=== PATIENT | female | born 1980 | race Asian ===

== ENCOUNTER 2020-02-04 16:17 | Outpatient (CLI) | payer OTHER, SELFPAY | END 2020-02-04 16:18 | disposition home or self-care (01) | LOC: SPT 16:18 | PROVIDERS: Family Provider Internal Medicine; PCP Internal Medicine; Visit Provider Orthopaedic Surgery | DX: Z46.89 Encounter for fitting and adjustment of other specified devices (principal); M76.52 Patellar tendinitis, left knee | CPT/HCPCS: 97760; L1812 ==

== ENCOUNTER → 2022-02-17 15:16 | Outpatient (BNVA) | payer OTHER, SELFPAY | PROVIDERS: Family Provider Internal Medicine; PCP Internal Medicine; Visit Provider Obstetrics & Gynecology | DX: Z12.4 Encounter for screening for malignant neoplasm of cervix (principal) | CPT/HCPCS: 87624 ==

== ENCOUNTER 2022-03-09 14:53 | Outpatient (CLI) | payer OTHER, SELFPAY ==
--- NOTE | 2022-03-09 14:55 | MM_ITS ---
WS: [id number] BILATERAL 3D TOMOSYNTHESIS DIGITAL SCREENING MAMMOGRAPHY WITH CAD CLINICAL INFORMATION: Z12.39 - Encounter for other screening for malignant neop... HISTORY: Screening mammogram. Milky discharge LEFT nipple. COMPARISON: TECHNIQUE: Bilateral CC and MLO views. FINDINGS: The breasts are composed of heterogeneous fibroglandular density tissue, which can limit the detectio n of small underlying mass lesions. No suspicious mass, asymmetry, calcifications, or architectural d istortion. No evidence of malignancy. MM/[place] [id number] IMPRESSION: BI-RADS: 1-Negative FOLLOW UP: 1 Year Follow-up Recommend return to annual screening mammography.
== END 2022-03-09 14:54 | disposition home or self-care (01) ==
LOC: RAD 14:53
PROVIDERS: Family Provider Internal Medicine; PCP Internal Medicine; Visit Provider Obstetrics & Gynecology
DX: Z12.31 Encounter for screening mammogram for malignant neoplasm of breast (principal)
CPT/HCPCS: 77063; 77067

== ENCOUNTER 2023-04-12 14:54 | Outpatient (CLI) | payer OTHER, SELFPAY ==
--- NOTE | 2023-04-12 15:03 | MM_ITS ---
WS: [id number] BILATERAL 3D TOMOSYNTHESIS DIGITAL SCREENING MAMMOGRAM WITH CAD CLINICAL INFORMATION: SCREENING HISTORY: Screening mammogram. No current complaints. COMPARISON: 2021 TECHNIQUE: Bilateral CC and MLO. FINDINGS: The breast are composed of extremely dense tissue, which can limit the detection of small underlying mass lesions. No suspicious focal mass, asymmetry, calcifications, or architectural distortion. No ev idence of malignancy. IMPRESSION: MM/[id number] BI-RADS: 1-Negative FOLLOW UP: 1 Year Follow-up Recommend return to annual screening mammography.
== END 2023-04-12 14:55 | disposition home or self-care (01) ==
LOC: RAD 14:57 → MOBLMAM 15:00
PROVIDERS: PCP Internal Medicine; Visit Provider Internal Medicine
DX: Z12.31 Encounter for screening mammogram for malignant neoplasm of breast (principal)
CPT/HCPCS: 77063; 77067

== ENCOUNTER 2023-04-26 15:56 | Emergency (ER) | payer OTHER, SELFPAY ==
[2023-04-26 15:58] VITALS: BP 121/69; PULSE 75; RESP 18; TEMP 36.9; O2SAT 97; BMI 24.6
--- NOTE | 2023-04-26 16:17 | XRR_ITS ---
PROCEDURE INFORMATION: Exam: XR Chest Exam date and time: 04/26/2023 4:36 PM Age: 43 years old Clinical indication: Pain; On breathing; Additional info: Chest pain TECHNIQUE: Imaging protocol: Radiologic exam of the chest. Views: 1 view. COMPARISON: CR XR shoulder RT min 2V* [id number] 11/30/2022 2:06 PM FINDINGS: Lungs: Unremarkable. No consolidation. Pleural spaces: Unremarkable. No pleural effusion. No pneumothorax. Heart/Mediastinum: Unremarkable. No cardiomegaly. Bones/joints: Unremarkable. XR/XR chest 1V portable [id number] IMPRESSION: No acute findings.
--- NOTE | 2023-04-26 16:21 | ED_ITS ---
Documented by User: Lenny Waller DO 04/26/23 17:27 HPI - URI/Sore Throat General: Chief Complaint: Upper Respiratory Infection Stated Complaint: chest mcintyre, had bronchitus Time Seen by Provider: 04/26/23 16:14 History of Present Illness: Patient states she has had a cold and flulike symptoms for the last month. With cough and congestion. Patient states she is been on an antibiotic every week for the last 4 weeks with a brand-new and starting today. But she has not not gotten any relief from any of them. Patient states that her pain is worse when she takes a big deep breath. The pain is in the central region of her chest. But patient also states that this pain is even more severe when she eats or drinks. Patient does not have any history of acid reflux or peptic ulcer disease. Review of Systems General: Reports: 10 or more systems reviewed and unremarkable except in HPI and below PFSH ED PFSH: Medical History Hypothyroidism Diagnosed in 2018 and is on medication managed by primary care provider Dr. Kirby Mood changes Diagnosed in 2001 and has been on medication since then. No pertinent past medical history Denies diabetes, asthma, hypertension, seizures, DVT/PE PCP: Dr. Kirby Surgical History S/P section X2 2007, 2012 S/P left knee surgery X 3 02/2018, performed for torn tendon S/P tubal ligation Laparoscopic procedure in 2013 Family History Family/Other Breast cancer maternal cousin, diagnosed in her 40s Grandmother Ovarian cancer maternal grandmother, age at diagnosis unknown Denies family history of Colon cancer Diabetes Heart disease Hyperlipidemia Hypertension Uterine cancer Thyroid condition Stroke Social History Smoking and tobacco status: never smoked Physical Exam Const: COMMON NORMALS: no acute distress, average body habitus, patient oriented x3, no limitations, healthy appearing, alert and well nourished HENMT: COMMON NORMALS: normocephalic, atraumatic, hearing grossly normal bilaterally, external ears normal, Normal external nose present and moist oral mucous membranes HEAD & SCALP: normocephalic and atraumatic NOSE: Normal external nose present EXTERNAL EAR: Yes external ears normal Eye: COMMON NORMALS: Equal, round and reactive pupils present, EOMs intact bi laterally, conjunctivae normal and no scleral icterus CONJUNCTIVA: Yes co njunctivae normal PUPIL: Yes Equal, round and reactive pupils present Neck/C-Spine: COMMON NORMALS: full ROM, no lymphadenopathy, supple, no meningeal signs, no JVD and Thyroid normal THYROID: Thyroid normal Chest: COMMONS NORMALS: normal inspection of the chest; negative for normal palpation of entire chest wall (Tender to palpation m idsternal to lower sternal region.) Resp: COMMON NORMALS: normal respiratory effort, No retractions, No use of accessory muscles and clear to auscultation bilaterally AUSCULTATION: clear to auscultation bilaterally Cardio: COMMON NORMALS: no JVD, regular rate, regular rhythm, S1 normal heart sound present, S2 normal heart sound present, No gallops present (Cardio), No clicks present (Cardio), No murmurs present (Cardio) and No rub (Cardio) RATE: regular rate RHYTHM: regular rhythm HEART SOUNDS: S1 normal heart sound present and S2 normal heart sound present GI: COMMON NORMALS: Normal to inspection, nondistended, normoactive bowel sounds present, Soft to palpation, non-tender, No hepatosplenomegaly present, no masses and no bruits PALPATION: Yes Soft to palpation and Yes No hepatosplenomegaly present : COMMON NORMALS: Yes no CVA tenderness BLADDER/KIDNEY EXAM: Yes no CVA tenderness Back/Pelvis: COMMON NORMALS: no CVA tenderness Neuro: COMMON NORMALS: patient oriented x3 SENSORIUM/ORIENTATION: Yes alert MENINGEAL SIGNS: Yes no meningeal signs Course Vital Signs: Vital signs: Vital Signs Temperature 98.4 F 04/26/23 15:58 Pulse Rate 70 04/26/23 17:55 Respiratory Rate 18 04/26/23 15:58 Blood Pressure 120/66 04/26/23 17:55 Pulse Oximetry 100 04/26/23 17:55 Oxygen Delivery Me thod Room Air 04/26/23 17:55 MDM - URI/Sore Throat Differential Diagnosis Unlikely upper respiratory infection, croup, otitis media, sinusitis, viral infection, bronchitis, influenza or pharyngitis Medical Records I reviewed the patient's medical records. Lab Data I reviewed the patient's lab results. 04/26/23 16:30 04/26/23 16:30 Radiology Impressions Chest X-Ray 04/26/23 16:17 IMPRESSION: No acute findings. Laboratory Results WBC 12.94 10^3/uL (3.29-11.43) H 04/26/23 16:30 RBC 4.19 10^6/uL (3.85-5.65) 04/26/23 16:30 Hgb 11.70 g/dL (11.27-16.99) 04/26/23 16:30 Hct 35.4 % (36-47) L 04/26/23 16:30 MCV 84.5 fl (85-98) L 04/26/23 16: MCH 27.9 pg (27-33) 04/26/23 16: MCHC 33.1 g/dL (30-55) 04/26/23 16: RDW 14.2 % (12.1-15.1) 04/26/23 16:30 Plt Count 222 10^3/cmm (157-399) 04/26/23 16:30 MPV 10.8 fL (7.4-10.4) H 04/26/23 16:30 Neut % (Auto) 71.3 % 04/26/23 16:30 Lymph % (Auto) 21.4 % 04/26/23 16:30 [place] % (Auto) 5.2 % 04/26/23 16:30 Eos % (Auto) 1.5 % 04/26/23 16:30 Baso % (Auto) 0.2 % 04/26/23 16: Neut # (Auto) 9.23 10^3/uL (1.8-7.7) H 04/26/23 16:30 Lymph # (Auto) 2.8 10^3/uL (0.8-4.8) 04/26/23 16:30 [place] # (Auto) 0.7 10^3/uL (0.2-0.9) 04/26/23 16:30 Eos # (Auto) 0.2 10^3/uL (0.0-0.8) 04/26/23 16:30 Baso # (Auto) 0.0 10^3/uL (0.0-0.1) 04/26/23 16:30 Nucleated RBC % (auto) 0 % 04/26/23 16:30 Nucleated RBCs # 0.0 /100WBC 04/26/23 16:30 Sodium 136 mmol/L (136-145) 04/26/23 16:30 Potassium 3.7 mmol/L (3.5-5.1) 04/26/23 16:30 Chloride 105 mmol/L (98-107) 04/26/23 16:30 Carbon Dioxide 23 mmol/L (22-29) 04/26/23 16:30 Anion Gap 11.7 (5-19) 04/26/23 16:30 BUN 11 mg/dL (6-20) 04/26/23 16:30 Creatinine 0.8 mg/dL (0.5-0.9) 04/26/23 16:30 GFR Calculation 78.3 mL/min (90-130) L 04/26/23 16:30 Glucose 138 mg/dL (65-115) H 04/26/23 16:30 Calculated Osmolality 284 mOsm/kg (285-295) L 04/26/23 16:30 Calcium 8.7 mg/dL (8.5-10.5) 04/26/23 16:30 Total Bilirubin 0.5 mg/dL (0.15-1.2) 04/26/23 16:30 AST 11 U/L (0-32) 04/26/23 16:30 ALT 8 U/L (0-33) 04/26/23 16:30 Alkaline Phosphatase 41 U/L (35-105) 04/26/23 16:30 Troponin T Baseline 6 ng/L (0-10) 04/26/23 16:30 Troponin T 120 Minute 6.00 ng/L (0-10) 04/26/23 18:38 Delta Troponin T 0 ABS# (0-10) 04/26/23 18:38 Total Protein 6.8 g/dL (6.6-8.7) 04/26/23 16:30 Albumin 4.3 g/dL (3.5-5.2) 04/26/23 16:30 Globulin 2.5 g/dL (1.3-4.6) 04/26/23 16:30 Nasal Influ A H1 2008 PCR Not detected (NOT DETECT) 04/26/23 17:23 Adenovirus (PCR) Not detected (NOT DETECT) 04/26/23 17:23 C. pneumoniae DNA (PCR) Not detected (NOT DETECT) 04/26/23 17:23 Coronavirus 229E (PCR) Not detected (NOT DETECT) 04/26/23 17:23 Human Metapneumovir PCR Not detected (NOT DETECT) 04/26/23 17:23 Influenza A (H1) PCR Not detected (NOT DETECT) 04/26/23 17:23 Influenza A (H3) PCR Not detected (NOT DETECT) 04/26/23 17:23 Influenza Type A (PCR) Not detected (NOT DETECT) 04/26/23 17:23 Influenza Type B (PCR) Not detected (NOT DETECT) 04/26/23 17:23 M. pneumoniae (PCR) Not detected (NOT DETECT) 04/26/23 17:23 Parainfluenza 1 (PCR) Not detected (NOT DETECT) 04/26/23 17:23 Parainfluenza 2 (PCR) Not detected (NOT DETECT) 04/26/23 17:23 Parainfluenza 3 (PCR) Not detected (NOT DETECT) 04/26/23 17:23 Parainfluenza 4 (PCR) Not detected (NOT DETECT) 04/26/23 17:23 RSV Type A (PCR) Not detected (NOT DETECT) 04/26/23 17:23 RSV Type B (PCR) Not detected (NOT DETECT) 04/26/23 17:23 Entero/Rhino (PCR) Not detected (NOT DETECT) 04/26/23 17:23 SARS-CoV-2 (PCR) Not detected (NOT DETECT) 04/26/23 17:23 EKG Data EKG 1: I personally reviewed and interpreted this EKG as follows: EKG interpretation date: 04/26/23 EKG interpretation time: 16:26 Prior EKG tracings: not available for review Interpretation: EKG shows ventricular rate 72 bpm, IA interval 121, QRS duration 86, QTc 399, sinus rhythm, no ST-T wave changes Discharge Plan Discharge Patient Disposition: Home Clinical Impression: Atypical chest pain Condition: Stable Prescriptions: No Action norethindrone-e.estradiol-iron [Junel FE .5/ (28)] 1.5 mg-30 mcg (21)/75 mg (7) tablet 1 tab PO DAILY Qty: 84 3RF sertraline [Zoloft] 25 mg tablet 25 mg PO DAILY levothyroxine 50 mcg capsule 50 mcg PO DAILY cetirizine [Zyrtec] 10 mg tablet 10 mg PO DAILY Discharge Orders: Discharge ED (Routine); Ordered 04/26/23 Ordered By: Yosef Lehman Referrals: Thom Kirby DO [Primary Care Provider] - 1-3 days Discharge Diet: Advance as tolerated Discharge Activity: Resume usual activity Patient Instructions: Chest Pain (ED) Coding Level of Care Code ED Retail Sales Merchandiser Development for [employer] Documented by User: Yosef Lehman MD 04/26/23 19:34 HPI - URI/Sore Throat General: Chief Complaint: Upper Respiratory Infection Stated Complaint: chest mcintyre, had bronchitus Time Seen by Provider: 04/26/23 16:14 PFSH ED PFSH: Medical History Hypothyroidism Diagnosed in 2018 and is on medication managed by primary care provider Dr. Kirby Mood changes Diagnosed in 2001 and has been on medication since then. No pertinent past medical history Denies diabetes, asthma, hypertension, seizures, DVT/PE PCP: Dr. Kirby Surgical History S/P section X2 2007, 2012 S/P left knee surgery X 3 02/2018, performed for torn tendon S/P tubal ligation Laparoscopic procedure in 2012 Family History Family/Other Breast cancer maternal cousin, diagnosed in her 40s Grandmother Ovarian cancer maternal grandmother, age at diagnosis unknown Denies family history of Colon cancer Diabetes Heart disease Hyperlipidemia Hypertension Uterine cancer Thyroid condition Stroke Social History Smoking and tobacco status: never smoked Course Vital Signs: Vital signs: Vital Signs Temperature 98.4 F 04/26/23 15:58 Pulse Rate 70 04/26/23 17:55 Respiratory Rate 18 04/26/23 15:58 Blood Pressure 120/66 04/26/23 17:55 Pulse Oximetry 100 04/26/23 17:55 Oxygen Delivery Me thod Room Air 04/26/23 17:55 MDM - URI/Sore Throat Medical Decision Making Patient presents for chest pains atypical in nature x-ray EKG here is normal her initial repeat troponins are normal as well she has no signs of dissection or pulm embolism she has no signs of acute coronary syndrome her pain is since resolved here she is stable for discharge she is follow-up with PCP and return if worsening. Lab Data 04/26/23 16:30 04/26/23 16:30 Radiology Impressions Chest X-Ray 04/26/23 16:17 IMPRESSION: No acute findings. Laboratory Results WBC 12.94 10^3/uL (3.29-11.43) H 04/26/23 16:30 RBC 4.19 10^6/uL (3.85-5.65) 04/26/23 16:30 Hgb 11.70 g/dL (11.27-16.99) 04/26/23 16:30 Hct 35.4 % (36-47) L 04/26/23 16:30 MCV 84.5 fl (85-98) L 04/26/23 16:30 MCH 27.9 pg (27-33) 04/26/23 16:30 MCHC 33.1 g/dL (30-55) 04/26/23 16:30 RDW 14.2 % (12.1-15.1) 04/26/23 16:30 Plt Count 222 10^3/cmm (157-399) 04/26/23 16:30 MPV 10.8 fL (7.4-10.4) H 04/26/23 16:30 Neut % (Auto) 71.3 % 04/26/23 16:30 Lymph % (Auto) 21.4 % 04/26/23 16:30 [place] % (Auto) 5.2 % 04/26/23 16:30 Eos % (Auto) 1.5 % 04/26/23 16:30 Baso % (Auto) 0.2 % 04/26/23 16:30 Neut # (Auto) 9.23 10^3/uL (1.8-7.7) H 04/26/23 16:30 Lymph # (Auto) 2.8 10^3/uL (0.8-4.8) 04/26/23 16:30 [place] # (Auto) 0.7 10^3/uL (0.2-0.9) 04/26/23 16:30 Eos # (Auto) 0.2 10^3/uL (0.0-0.8) 04/26/23 16:30 Baso # (Auto) 0.0 10^3/uL (0.0-0.1) 04/26/23 16:30 Nucleated RBC % (auto) 0 % 04/26/23 16:30 Nucleated RBCs # 0.0 /100WBC 04/26/23 16:30 Sodium 136 mmol/L (136-145) 04/26/23 16:30 Potassium 3.7 mmol/L (3.5-5.1) 04/26/23 16:30 Chloride 105 mmol/L (98-107) 04/26/23 16:30 Carbon Dioxide 23 mmol/L (22-29) 04/26/23 16:30 Anion Gap 11.7 (5-19) 04/26/23 16:30 BUN 11 mg/dL (6-20) 04/26/23 16:30 Creatinine 0.8 mg/dL (0.5-0.9) 04/26/23 16:30 GFR Calculation 78.3 mL/min (90-130) L 04/26/23 16:30 Glucose 138 mg/dL (65-115) H 04/26/23 16:30 Calculated Osmolality 284 mOsm/kg (285-295) L 04/26/23 16:30 Calcium 8.7 mg/dL (8.5-10.5) 04/26/23 16:30 Total Bilirubin 0.5 mg/dL (0.15-1.2) 04/26/23 16:30 AST 11 U/L (0-32) 04/26/23 16:30 ALT 8 U/L (0-33) 04/26/23 16:30 Alkaline Phosphatase 41 U/L (35-105) 04/26/23 16:30 Troponin T Baseline 6 ng/L (0-10) 04/26/23 16:30 Troponin T 120 Minute 6.00 ng/L (0-10) 04/26/23 18:38 Delta Troponin T 0 ABS# (0-10) 04/26/23 18:38 Total Protein 6.8 g/dL (6.6-8.7) 04/26/23 16:30 Albumin 4.3 g/dL (3.5-5.2) 04/26/23 16:30 Globulin 2.5 g/dL (1.3-4.6) 04/26/23 16:30 Nasal Influ A H1 2009 PCR Not detected (NOT DETECT) 04/26/23 17:23 Adenovirus (PCR) Not detected (NOT DETECT) 04/26/23 17:23 C. pneumoniae DNA (PCR) Not detected (NOT DETECT) 04/26/23 17:23 Coronavirus 229E (PCR) Not detected (NOT DETECT) 04/26/23 17:23 Human Metapneumovir PCR Not detected (NOT DETECT) 04/26/23 17:23 Influenza A (H1) PCR Not detected (NOT DETECT) 04/26/23 17:23 Influenza A (H3) PCR Not detected (NOT DETECT) 04/26/23 17:23 Influenza Type A (PCR) Not detected (NOT DETECT) 04/26/23 17:23 Influenza Type B (PCR) Not detected (NOT DETECT) 04/26/23 17:23 M. pneumoniae (PCR) Not detected (NOT DETECT) 04/26/23 17:23 Parainfluenza 1 (PCR) Not detected (NOT DETECT) 04/26/23 17:23 Parainfluenza 2 (PCR) Not detected (NOT DETECT) 04/26/23 17:23 Parainfluenza 3 (PCR) Not detected (NOT DETECT) 04/26/23 17:23 Parainfluenza 4 (PCR) Not detected (NOT DETECT) 04/26/23 17:23 RSV Type A (PCR) Not detected (NOT DETECT) 04/26/23 17:23 RSV Type B (PCR) Not detected (NOT DETECT) 04/26/23 17:23 Entero/Rhino (PCR) Not detected (NOT DETECT) 04/26/23 17:23 SARS-CoV-2 (PCR) Not detected (NOT DETECT) 04/26/23 17:23 Discharge Plan Discharge Patient Disposition: Home Clinical Impression: Atypical chest pain Condition: Stable Prescriptions: No Action norethindrone-e.estradiol-iron [Junel FE 1.5/30 (28)] 1.5 mg-30 mcg (21)/75 mg (7) tablet 1 tab PO DAILY Qty: 84 3RF sertraline [Zoloft] 25 mg tablet 25 mg PO DAILY levothyroxine 50 mcg capsule 50 mcg PO DAILY cetirizine [Zyrtec] 10 mg tablet 10 mg PO DAILY Discharge Orders: Discharge ED (Routine); Ordered 04/26/23 Ordered By: Yosef Lehman Referrals: Thom Kirby DO [Primary Care Provider] - 1-3 days Discharge Diet: Advance as tolerated Discharge Activity: Resume usual activity Patient Instructions: Chest Pain (ED) Coding Level of Care Code 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
--- NOTE | 2023-04-26 16:26 | ECG_ITS ---
[facility] Test Date: 2023-04-26 Pat Name: Escobar Garcia Department: Room: Gender: Female Operations Specialists: : 1980 Requested By: Lenny Waller Order Number: [id number] Libra MD: Maliha Cee M.D. Measurements Intervals [place] Rate: 72 P: 64 NH: 121 QRS: 65 QRSD: 86 T: 40 QT: 374 QTc: 412 Interpretive Statements SINUS RHYTHM No previous ECG available for comparison Electronically Signed On 04-26-2023 23:58:17 CDT by Maliha Cee M.D. [id number]
[2023-04-26] MEDS: aluminum-mag hydrox-simethicon 30 ML, sucralfate oral liq 1 GM PO (16:28)
[2023-04-26 16:49] LABS: Basophils % 0.2 %; Eosinophils # 0.2 10^3/uL (0.0-0.8); Eosinophils % 1.5 %; Hematocrit 35.4 % (36-47); Lymphocytes # 2.8 10^3/uL (0.8-4.8); Lymphocytes % 21.4 %; Mean Corpuscular HGB Conc 33.1 g/dL (30-55); Mean Corpuscular Hemoglobin 27.9 pg (27-33); Mean Corpuscular Volume 84.5 fl (85-98); Mean Platelet Volume 10.8 fL (7.4-10.4); Monocytes # 0.7 10^3/uL (0.2-0.9); Monocytes % 5.2 %; Neutrophils # 9.23 10^3/uL (1.8-7.7); Neutrophils % 71.3 %; Nucleated Red Blood Cells % 0 %; Platelet Count 222 10^3/cmm (157-399); Red Blood Count 4.19 10^6/uL (3.85-5.65); Red Cell Distribution Width 14.2 % (12.1-15.1); White Blood Count 12.94 10^3/uL (3.29-11.43)
[2023-04-26 16:55] LABS: Troponin(5th) Baseline 6 ng/L (0-10)
[2023-04-26 16:56] LABS: Alanine Aminotransferase 8 U/L (0-33); Albumin Level 4.3 g/dL (3.5-5.2); Alkaline Phosphatase 41 U/L (35-105); Aspartate Amino Transferase 11 U/L (0-32); Blood Urea Nitrogen 11 mg/dL (6-20); Calcium 8.7 mg/dL (8.5-10.5); Carbon Dioxide 23 mmol/L (22-29); Chloride 105 mmol/L (98-107); Globulin 2.5 g/dL (1.3-4.6); Glomerular Filtration Rate 78.3 mL/min (90-130); Glucose 138 mg/dL (65-115); Osmolality Calculated 284 mOsm/kg (285-295); Sodium 136 mmol/L (136-145); Total Bilirubin 0.5 mg/dL (0.15-1.2); Total Protein 6.8 g/dL (6.6-8.7)
[2023-04-26 16:59] VITALS: BP 122/69; PULSE 68; O2SAT 99
[2023-04-26 16:59] LABS: Anion Gap 11.7 (5-19); Potassium 3.7 mmol/L (3.5-5.1)
[2023-04-26] MEDS: ketorolac 30 mg/mL INJ IM (17:18)
[2023-04-26 17:55] VITALS: BP 120/66; PULSE 70; O2SAT 100
--- NOTE | 2023-04-26 18:53 | ECG_ITS ---
Test Date: 2023-04-26 Pat Name: Escobar Garcia Department: Room: Gender: Female Project Assistant: : 1980 Requested By: Lenny Waller Order Number: [id number] Libra MD: Maliha Cee M.D. Measurements Intervals [place] Rate: 66 P: 67 [place]: 134 QRS: 67 QRSD: 89 T: 53 QT: 384 QTc: 403 Interpretive Statements SINUS RHYTHM POSSIBLE RIGHT VENTRICULAR CONDUCTION DELAY [RSR (QR) IN V1/V2] Compared to ECG 04/26/2023 16:26:39 No significant changes Electronically Signed On 04-27-2023 0:05:11 CDT by Maliha Cee M.D. [id number]
[2023-04-26 19:16] LABS: Troponin 5 2HR Delta 0 ABS# (0-10)
[2023-04-26 19:18] LABS: Adenovirus Not Detected (NOT DETECT); Chlamydia Pneumoniae Not Detected (NOT DETECT); Coronavirus 229E,HKU1,NL63,OC4 Not Detected (NOT DETECT); Human Metapneumovirus Not Detected (NOT DETECT); Human Rhinovirus/Enterovirus Not Detected (NOT DETECT); Influenza A Not Detected (NOT DETECT); Influenza A H1 Not Detected (NOT DETECT); Influenza A H1-2009 Not Detected (NOT DETECT); Influenza A H3 Not Detected (NOT DETECT); Influenza B Not Detected (NOT DETECT); Mycoplasma Pneumoniae Not Detected (NOT DETECT); Parainfluenza Virus Type 1 Not Detected (NOT DETECT); Parainfluenza Virus Type 2 Not Detected (NOT DETECT); Parainfluenza Virus Type 3 Not Detected (NOT DETECT); Parainfluenza Virus Type 4 Not Detected (NOT DETECT); Respiratory Syncytial Virus A Not Detected (NOT DETECT); Respiratory Syncytial Virus B Not Detected (NOT DETECT); SARS-COV-2 Not Detected (NOT DETECT)
[2023-04-26 19:39] VITALS: BP 120/66; PULSE 70; RESP 18; TEMP 36.9; O2SAT 100
== END 2023-04-26 19:40 | disposition home or self-care (01) ==
PROVIDERS: Emergency Medicine; Emergency Provider Emergency Medicine; PCP Internal Medicine
DX: R07.89 Other chest pain (principal)
CPT/HCPCS: 36415; 71045; 80053; 84484; 85025; 87486; 87581; 87633; 93005; 96372; 99285; J1885

== ENCOUNTER 2024-04-18 14:51 | Outpatient (CLI) | payer OTHER, SELFPAY ==
--- NOTE | 2024-04-18 14:56 | MM_ITS ---
WS: [id number] BILATERAL 3D TOMOSYNTHESIS DIGITAL SCREENING MAMMOGRAPHY WITH CAD CLINICAL INFORMATION: SCREENING HISTORY: Screening mammogram. No current complaints. COMPARISON: 2022 TECHNIQUE: Bilateral CC and MLO views. FINDINGS: The breasts are composed of heterogeneous fibroglandular density tissue, which can limit the detectio n of small underlying mass lesions. No suspicious mass, asymmetry, calcifications, or architectural d istortion. No evidence of malignancy. Vascular calcifications. MM/[place] [id number] IMPRESSION: BI-RADS: 2-Benign FOLLOW UP: 1 Year Follow-up Recommend return to annual screening mammography.
== END 2024-04-18 14:52 | disposition home or self-care (01) ==
LOC: RAD 14:52
PROVIDERS: PCP Internal Medicine; Visit Provider Internal Medicine
DX: Z12.31 Encounter for screening mammogram for malignant neoplasm of breast (principal); R92.333 Mammographic heterogeneous density, bilateral breasts; R92.1 Mammographic calcification found on diagnostic imaging of breast
CPT/HCPCS: 77063; 77067

== ENCOUNTER 2024-10-04 09:51 | Outpatient (CLI) | payer OTHER, SELFPAY ==
--- NOTE | 2024-10-04 09:45 | USR_ITS ---
PROCEDURE INFORMATION: Exam: US Non-Invasive Physiologic Bilateral Lower Extremities Arteries, Complete Exam date and time: 10/04/2024 10:50 AM Age: 44 years old Clinical indication: Pain; Leg, lower; Bilateral; Additional info: Blood flow TECHNIQUE: Imaging protocol: Complete bilateral noninvasive physiologic studies of lower extremity arteries, 3 or more levels or single level study with provocative functional maneuvers. Waveforms were obtained and evaluated. Images were documented and archived. Exam is complete. Total images: 2 COMPARISON: US ROR venous duplex [facility] 05/25/2018 1:59 PM FINDINGS: Right Ankle-Brachial Index: 123/127 = 1.05 Right Digit: 86/117 = 0.74 Left Ankle-Brachial Index: 124/116 = 1.06 Left Digit: 104/116 = 0.89 US/CV segpressure [facility] [id number] IMPRESSION: Normal ankle-brachial indices.
== END 2024-10-04 09:52 | disposition home or self-care (01) ==
LOC: RAD 09:54
PROVIDERS: PCP Internal Medicine; Visit Provider Podiatrist Foot & Ankle Surgery
DX: I73.9 Peripheral vascular disease, unspecified (principal)
CPT/HCPCS: 93923

== ENCOUNTER 2025-04-23 14:56 | Outpatient (CLI) | payer OTHER, SELFPAY ==
--- NOTE | 2025-04-23 15:00 | MM_ITS ---
WS: [id number] BILATERAL 3D TOMOSYNTHESIS DIGITAL SCREENING MAMMOGRAPHY WITH CAD CLINICAL INFORMATION: SCREENING MAMMOGRAM HISTORY: Screening mammogram. No current complaints. COMPARISON: 2023 TECHNIQUE: Bilateral CC and MLO views. FINDINGS: The breasts are composed of heterogeneous fibroglandular density tissue, which can limit the detection of small underlying mass lesions. No suspicious mass, asymmetry, calcifications, or architectural distortion. No evidence of malignancy. MM/MM scr tomosynthesis [id number] IMPRESSION: DENSITY: The breasts are heterogeneously dense, which may obscure small masses. BI-RADS: 1 - Negative FOLLOW UP: 1 Year Follow-up Recommend return to annual screening mammography.
== END 2025-04-23 14:57 | disposition home or self-care (01) ==
LOC: RAD 14:57
PROVIDERS: Visit Provider Family Medicine
DX: Z12.31 Encounter for screening mammogram for malignant neoplasm of breast (principal); R92.323 Mammographic fibroglandular density, bilateral breasts; R92.333 Mammographic heterogeneous density, bilateral breasts
CPT/HCPCS: 77063; 77067

== ENCOUNTER → 2025-08-02 14:12 | Outpatient (BNVA) | payer OTHER, SELFPAY | PROVIDERS: PCP Internal Medicine; Visit Provider Nurse Practitioner Women's Health | DX: E28.319 Asymptomatic premature menopause (principal); Z13.21 Encounter for screening for nutritional disorder | CPT/HCPCS: 82306; 82670 ==

== ENCOUNTER 2025-08-05 15:13 | Outpatient (CLI) | payer OTHER, SELFPAY ==
--- NOTE | 2025-08-05 15:30 | XR_ITS ---
WS: [id number] DEXA (DUAL ENERGY X-RAY ABSORPTIOMETRY) Bone mineral density was performed using a CXOWARE machine. HISTORY: Z78.0 - Asymptomatic menopausal state COMPARISON: None available. Lumbar spine BMD (L1-L4): 1.096 g/cm2 T score: -0.7 Z score: -0.4 Total hip BMD: Left: 0.889 g/cm2. T score: -0.9 Z score: -0.5 Right: 0.947 g/cm2. T score: -0.5 Z score: 0.0 10 year probability of a major osteoporotic fracture is 3.1%. XR/XR DEXA axial skeleton* [id number] IMPRESSION: NORMAL BONE MINERAL DENSITY based upon the WHO classification for females.
== END 2025-08-05 15:14 | disposition home or self-care (01) ==
LOC: RAD 15:13
PROVIDERS: PCP Internal Medicine; Visit Provider Nurse Practitioner Women's Health
DX: Z13.820 Encounter for screening for osteoporosis (principal); E28.319 Asymptomatic premature menopause; Z78.0 Asymptomatic menopausal state
CPT/HCPCS: 77080